=== PATIENT | male | born 1970 | race Caucasian/White ===

== ENCOUNTER 2021-11-03 08:21 | Emergency (ER) | payer OTHER ==
[~2021-11-03] VITALS: Ht 180.3 cm; Wt 100.0 kg
[~2021-11-03 08:21] MED LIST: CIPROFLOXACN750 MG PO; DEPO-MEDROL80 MG/ML IM; FLEXERIL OR; IBUPROFEN800 MG PO; METRONIDAZOL500 MG PO; MOTRIN800 MG/TAB PO; ULTRAM50 M1 PO; VICODIN1 TA1 PO
[2021-11-03] MEDS ORDERED: ULTRAM50 MG PO (09:41)
[2021-11-03 09:57] VITALS: BP 128/82
== END 2021-11-03 09:57 | disposition home or self-care (01) | DRG 206 ==
LOC: ED 08:21
DX: S22.32XA Fracture of one rib, left side, initial encounter for closed fracture (principal); E78.5 Hyperlipidemia, unspecified; X58.XXXA Exposure to other specified factors, initial encounter

== ENCOUNTER 2022-06-29 12:08 | Emergency (ER) | payer OTHER ==
[~2022-06-29] VITALS: Ht 180.3 cm; Wt 104.3 kg
[~2022-06-29 12:08] MED LIST changes: +ULTRAM50 MG PO
[2022-06-29 14:42] VITALS: BP 126/88
[2022-06-29 15:01] VITALS: BP 139/90
[2022-06-29 15:31] VITALS: BP 114/81
== END 2022-06-29 15:49 | disposition home or self-care (01) | DRG 556 ==
LOC: ED 12:08
DX: M79.632 Pain in left forearm (principal); S50.812A Abrasion of left forearm, initial encounter; X58.XXXA Exposure to other specified factors, initial encounter